=== PATIENT | female | born 1935 | race Caucasian/White ===

== ENCOUNTER 2018-12-25 06:12 | Inpatient (IN) ==
[2018-12-25] MEDS ORDERED: ZOFRAN IV PRN (10:37)
[2018-12-25] MEDS ORDERED: LOVENOX SUBQ SCH (10:45)
[2018-12-25 11:13] LABS: BASO# 0.01 X1000 (0.0-0.2); BASO% 0.1 % (0.0-0.8); EOS# 0.01 X1000 (0.0-0.7); EOS% 0.1 % (0.0-10.0); HEMATOCRIT 39.4 % (37.0-47.0); HEMOGLOBIN 12.9 g/dL (12.0-16.0); IMM GRAN# 0.05 X1000 (0.0-0.04); IMM GRAN% 0.5 % (0.0-0.5); LYMPH# 0.43 X1000 (1.2-3.4); LYMPH% 4.4 % (20.5-51.1); MCH 29.7 PG (27-31); MCHC 32.7 g/dL (33-37); MCV 90.8 FL (81-99); MONO# 0.38 X1000 (0.11-0.59); MONO% 3.9 % (1.7-9.3); MPV 10.3 FL (7.4-10.4); NEUT# 8.91 X1000 (1.4-6.5); PLT 70 X1000 (130-400); RBC 4.34 XMIL (4.2-5.4); WBC 9.79 X1000 (4.8-10.8)
[2018-12-25] MEDS: NS 1,000 ML IV SCH (11:31)
[2018-12-25] MEDS: MAXIPIME 2 GM in NS 100 ML IV SCH ×2 (11:32→23:23)
[2018-12-25 11:33] LABS: ALB/GLOB RATIO 1.3; ALBUMIN 3.4 g/dL (3.5-5.0); CALCIUM 7.8 mg/dL (8.8-10.2); POTASSIUM 3.8 mmol/L (3.5-5.1); TOTAL BILIRUBIN 2.82 mg/dL (0.20-1.00)
[2018-12-25] MEDS: TYLENOL PO PRN ×2 (11:40→20:35)
[2018-12-25 11:42] LABS: BANDS 20 % (0-1); HYPOCHROM 1+; LARGE PLATELETS OCCASIONAL; LYMPHS 8 % (21-51); MONO 4 % (1-9); POIKILOCYTOSIS 1+; SEGS 68 % (42-75)
[2018-12-25 14:17] LABS: BILIRUBIN URINE SMALL (NEGATIVE); BLOOD URINE MODERATE (NEGATIVE); COLOR YELLOW; GLUCOSE URINE NEGATIVE (NEGATIVE); KETONE URINE TRACE mg/dL (NEGATIVE); LEUKOCYTES URINE NEGATIVE (NEGATIVE); NITRITE URINE NEGATIVE (NEGATIVE); PROTEIN URINE 200 mg/dL (NEGATIVE); SP GRAVITY URINE 1.037; TURBIDITY URINE HAZY (CLEAR); URINE SOURCE CATH; UROBILINOGEN URINE 6 mg/dL (NORMAL)
[2018-12-25 14:23] LABS: UR EPITHELIAL CELLS <10 /HPF (<10); URINE BACTERIA NEGATIVE /HPF; URINE RBC TNTC /HPF (<10); URINE WBC <10 /HPF (<10)
[2018-12-25 14:32] LABS: URINE CASTS NONE SEEN; URINE CRYSTALS NONE SEEN; URINE YEAST NONE SEEN
--- NOTE | 2018-12-25 14:43 | HISTORY AND PHYSICAL ---
CHIEF COMPLAINT: Generalized weakness, fever, productive cough. HISTORY OF PRESENT ILLNESS: This is an 83-year-old female with a history of colorectal cancer followed by Dr. Teresa Coello, hypothyroid, and anemia. She presented as a transfer from [facility]. The patient states that she has been in her normal state of health until this morning. She tried to get up to the bedside commode. She put her feet on the floor, attempted to stand, and stated that her feet would not hold her up. Therefore, she just fell down to the floor. She was noted to have a temperature of 103 degrees at this time per EMS vital signs. She did state that after being picked up off the ground and put in the ambulance, she coughed up a large amount of green secretions. She denies any known sick contacts. PAST MEDICAL HISTORY: 1. Anemia. 2. Colorectal cancer, currently on Vectibix. 3. Hypothyroid. 4. Tremor. 5. Osteopenia. PREVIOUS SURGICAL HISTORY: Cholecystectomy, bilateral cataract repair, D and C, and left shoulder manipulation. SOCIAL HISTORY: She lives with her . She denies alcohol, tobacco, or illicit drug use. FAMILY HISTORY: Mother at 81 of liver failure. Father at age 52 from a brain tumor. She does have cardiac disease in her family. ALLERGIES: Cipro which causes shortness of breath, penicillin which causes anaphylaxis, and epinephrine with unknown reaction. HOME MEDICATIONS: A list will be obtained by the nursing staff and once verified, we will review and restart as appropriate. REVIEW OF SYSTEMS: Discussed with the patient with pertinent positives stated in the HPI. She denied any syncope or dizziness, any chest pain or palpitations, shortness of breath, any PND, orthopnea, any hemoptysis, any vomiting, diarrhea, constipation, black or bloody vomitus or stools, any hematuria, dysuria, frequency, urgency. PHYSICAL EXAMINATION: GENERAL: This is an 83-year-old female who is lying in the bed, in no distress. VITAL SIGNS: Blood pressure is 145/50, with a heart rate of 97, respirations are 18, temperature is 101.1 degrees oral, with room air saturations of 98%. EYES: Pupils are equal, round, react to light. EOMs are intact. Sclerae are anicteric. HENT: Head is normocephalic, atraumatic. Mucous membranes are dry. NECK: Supple with trachea midline. No JVD. CARDIOVASCULAR: Regular rate and rhythm. S1 and S2 are appreciated. No murmur. She does have bilateral lower extremity edema. Calves are nontender. Bilateral peripheral pulses palpable x4 extremities. PULMONARY: She does have some rhonchi that clear to cough. Chest rises and falls symmetrically with respiration. Chest wall is nontender to palpation. GASTROINTESTINAL: Abdomen is soft, nontender, nondistended, with bowel sounds in all 4 quadrants. GENITOURINARY: A Lincoln catheter is patent to the bedside bag. SKIN: Warm and dry. She does have a rash to her chest that is clearing. NEUROLOGIC: She is alert and oriented x3. LABS: WBC is 9.7, with hemoglobin 12.9, hematocrit 39.4, and platelets of 70,000. Sodium 135, potassium 3.8, BUN 20, creatinine 1, with a glucose of 84. Total bilirubin is 2.82. Blood cultures are pending. CT of the thorax with contrast is pending. ASSESSMENT AND PLAN: 1. Fever. Blood cultures are pending. We will start antibiotic coverage of cefepime 2 g every 12 hours and further antibiotics will be culture driven. 2. History of colorectal cancer, currently on Vectibix. We will identify and continue her home medications. We will notify Dr. Teresa Coello of the patient's admission. 3. Hypothyroid. We will check a TSH and continue her home medications. 4. Dehydration. We will start some intravenous rehydration. 5. Rash. The patient developed a generalized body rash secondary to chemotherapy. She missed last week's treatments due to this. A rash is noted across her chest. The patient states that it is much better and it has been followed by Dr. Teresa Coello. 6. Further treatments pending hospital course. 7. Plan was discussed with Dr. Cid. Dictated by KI Jaquez for Yomi Cid MD cc: KI Jaquez MD Lloyd James, MD
[2018-12-25] MEDS ORDERED: VANCOMYCIN IV PER PHARMACY MISC SCH (17:00)
[2018-12-25] MEDS ORDERED: VANCOMYCIN 1,550 MG in NS 250 ML IV ONE (18:00)
[2018-12-25] MEDS: CULTURELLE PO SCH (20:35)
[2018-12-25] MEDS: MYSOLINE PO SCH (20:35)
[2018-12-25] MEDS: PRILOSEC PO SCH (20:35)
--- NOTE | 2018-12-25 21:06 | PROGRESS NOTE ---
DATE: 12/25/2018 SUBJECTIVE/OBJECTIVE: The patient is a colorectal cancer patient. She recently completed chemotherapy. I have heard varying dates on that, but within the last couple of weeks, within the last 10 weeks. She is currently on epidermal growth factor receptor antibody treatment Vectibix, which is specific for colorectal cancer. She developed a fever today up to 103. She has been persistently febrile 101, since she has been here, without a clear source. She was initially seen in the [place] ER and then transferred here for admission. Really, her only main complaints were she does have some cough. No abdominal complaints per se. No urinary complaints. ASSESSMENT/PLAN: 1. She has a fever of unknown origin. She is not neutropenic, but there is definitely concern of development of that. We will get Hematology/Oncology to follow, but I am going to put her on cefepime and vancomycin until we have ruled out bacteremia. She is not per se neutropenic, but again, she may be developing that. She also has thrombocytopenia and so we will have to keep a close eye on that. 2. She had mild kidney insufficiency, so we will need to hydrate and re-evaluate. cc: MD Moreno Weldon MD
--- NOTE | 2018-12-25 22:11 | HEMO/ONC CONSULTATION ---
DATE: 12/25/2018 CONSULTATION REQUESTED BY: Hospitalist service. REASON FOR CONSULTATION: Colon cancer, patient known. HISTORY OF PRESENT ILLNESS: Ms. Jeronimo is an 83-year-old female, who is known to us as we are currently treating her for colorectal cancer who is a transfer from [facility]. Over the weekend, per the patient's and daughter who are at bedside along with the patient, she developed some significant weakness. She has had 2 episodes of weakness resulting in her "collapsing" on the floor. She had an elevated temperature late last night, early this morning of 103, and her could not get her off the floor this time so an ambulance came, and she was transferred to the hospital. While in the ambulance, she reports that she coughed up a large amount of green sputum. The patient is currently getting Vectibix for her colon cancer. Her last dose was on 12/07/2018. She did develop a rash from the Vectibix, which is a common side effect. She is actually placed on doxycycline and had taken some doses of the antibiotic prior to being sick. The patient is now in the hospital without any acute complaints. PAST MEDICAL HISTORY: 1. Colon cancer, metastatic, currently on Vectibix with her last dose being on 12/07/2018. 2. Hypothyroidism. 3. Resting tremor. 4. Osteopenia. 5. Anemia. PREVIOUS SURGICAL HISTORY: 1. Cholecystectomy. 2. Bilateral cataract repair. 3. D and C. 4. Left shoulder manipulation. SOCIAL HISTORY: Patient lives with her . She denies any alcohol, tobacco, or illicit drug use. FAMILY HISTORY: Positive for liver failure. Also her father at age of 52 from a brain tumor. She also has cardiac disease in her family. REVIEW OF SYSTEMS: Twelve-point review of systems has been completed and is negative except for as expressed in HPI. PHYSICAL EXAMINATION: Vital Signs: Temperature 101.1 degrees, heart rate 97, respirations 20, blood pressure 145/57, O2 saturation 98% on room air. General: This is a female lying in the hospital bed. Her and daughter are at bedside. She is in no acute distress. She does look acutely ill. Head: Normocephalic, atraumatic. Eyes: Pupils equal, round, reactive. Ears, nose, throat, neck, mouth: Mucosa appears to be normal. Gross auditory acuity is intact. Cardiovascular: S1, S2 heard. Respiratory: She has coarse breath sounds throughout. She has some rhonchi as well. Gastrointestinal: Abdomen is soft. Positive bowel sounds. Musculoskeletal: No bony abnormalities. Skin: She has a noted acneiform rash on her face. No other rashes noted. Neurologic: Patient is alert and oriented. She has no focal motor deficits. LABS AND STUDIES: White blood cells today are 9.79, hemoglobin 12.9, platelets 70,000. Bilirubin is 2.82. Blood cultures are pending. ASSESSMENT AND PLAN: 1. Colon cancer, metastatic. Treatment will continue to be on hold while the patient is in the hospital. She will follow up with us when she is out and will discuss resuming treatment at that time. 2. Fever with likely pneumonia. CT of the chest has been ordered, but the final results are not back yet. She is on broad-spectrum antibiotics to cover pneumonia. Continue to monitor fever curve. Follow up on cultures when they become available. 3. Thrombocytopenia. Patient has ongoing thrombocytopenia and 70 is actually around her baseline. Continue to monitor throughout her hospital stay. No intervention at this time. 4. Rash. Improved from onset. Rash is secondary to her Vectibix. 5. Dehydration. She will continue IV fluids. Thank you for consulting us on Ms. Jeronimo. We will continue to follow along and adjust treatment plan per hospital course. Dictated by MARCIA Looney for Teresa Coello MD cc: MD Moreno Quintero MD I have seen and examined the patient and the note reflects my history, physical exam, assessment and plan. Teresa Coello MD [facility]ALTH SYSTEMSeamus
[2018-12-26] MEDS: NS 1,000 ML IV SCH (03:32)
[2018-12-26] MEDS: TYLENOL PO PRN ×2 (03:32→16:35)
[2018-12-26 07:14] LABS: BASO# 0.01 X1000 (0.0-0.2); BASO% 0.1 % (0.0-0.8); HEMATOCRIT 32.8 % (37.0-47.0); HEMOGLOBIN 10.6 g/dL (12.0-16.0); IMM GRAN# 0.04 X1000 (0.0-0.04); IMM GRAN% 0.4 % (0.0-0.5); LYMPH# 0.75 X1000 (1.2-3.4); LYMPH% 7.9 % (20.5-51.1); MCH 29.4 PG (27-31); MCHC 32.3 g/dL (33-37); MCV 90.9 FL (81-99); MONO# 0.46 X1000 (0.11-0.59); MONO% 4.8 % (1.7-9.3); MPV 11.1 FL (7.4-10.4); NEUT# 8.25 X1000 (1.4-6.5); NEUT% 86.8 % (42.2-75.2); PLT 67 X1000 (130-400); RBC 3.61 XMIL (4.2-5.4); RDW 16.2 % (11.5-14.5); WBC 9.51 X1000 (4.8-10.8)
[2018-12-26 07:42] LABS: ALB/GLOB RATIO 0.9; ALBUMIN 2.3 g/dL (3.5-5.0); CALCIUM 7.4 mg/dL (8.8-10.2); CREATININE 1.2 mg/dL (0.5-0.9); POTASSIUM 4.1 mmol/L (3.5-5.1); TOTAL BILIRUBIN 2.18 mg/dL (0.20-1.00)
[2018-12-26 08:27] LABS: BANDS 12 % (0-1); BURR CELLS 2+; EOS 2 % (1-10); LYMPHS 4 % (21-51); SEGS 82 % (42-75)
--- NOTE | 2018-12-26 08:38 | Diag Imaging Result Doc PS360 ---
EXAM: CT THORAX W/CONTRAST 12/25/2018 HISTORY: pneumonia TECHNIQUE: This exam was performed using automated exposure control, adjustment of mA or kV according to patient size, and/or use of iterative reconstruction technique. COMMENT: The current study is compared with the previous examination of 10/15/2018. There is a filling defect in the inferior vena cava extending into the right atrium. This was also present on 10/15/2018. There is collateral flow through the azygos vein and there were larger collateral veins seen in the retrocrural region on the right which were better demonstrated on the previous study. There is a pleural effusion on the right which was not as large on the previous examination. There is ascites which was present previously. The spleen is somewhat larger in appearance than it was at the time the previous study measuring over 9.5 cm transversely versus 8.8 cm previously. The liver is nodular with areas of lucency present particularly in the posterior lateral right lobe. These may represent necrotic metastases given the patient's history. There are no filling defects in the pulmonary arteries. Subcarinal adenopathy which was present at the time the previous studies appears to have improved with a node slightly under 2 cm in long axis which previously measured over 2.2 cm. There is a pleural-based nodule in the right lower lobe laterally on image 43 which previously was demonstrated on image 42. This has not changed. There is slightly more compressive atelectasis in the right lower lobe. There is a pleural-based nodule on image 75 in the lower lobe which was previously present on image 78 which has not changed appreciably. There is a small nodule adjacent to the major fissure in the left lower lobe which has not changed significantly and is seen today on image 59. There is a nodule in the lingula on image 65 which measures almost 6 mm in diameter. This is larger than it was on the previous examination having measured less than 4 mm in diameter previously. The regional skeleton appears to be stable. IMPRESSION: 1. Atelectasis in the right lower lobe with increased pleural fluid. 2. 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 The extent of thrombosis of the inferior vena cava is not clear as this extends well into the abdomen. 3. Metastasis in the lingula which has increased in size since 10/15/2018. 4. Improvement in mediastinal adenopathy. 5. Slight increase in splenic size. 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 Further evaluation of the abdomen may be desirable. Electronically signed by Catrachito Yi 12/26/2018 8:35 AM
[2018-12-26] MEDS ORDERED: ARIXTRA SUBQ SCH (09:00)
[2018-12-26] MEDS: MYSOLINE PO SCH ×2 (09:40→20:12)
[2018-12-26] MEDS: SYNTHROID PO SCH (09:40)
[2018-12-26] MEDS: KLOR-CON PO SCH (09:40)
[2018-12-26] MEDS: ALLEGRA PO SCH (09:40)
[2018-12-26] MEDS: PRILOSEC PO SCH ×2 (09:41→20:12)
[2018-12-26] MEDS: CULTURELLE PO SCH ×2 (09:41→20:12)
[2018-12-26] MEDS ORDERED: NS 500 ML IV ONE (09:49)
[2018-12-26] MEDS ORDERED: NS 1,000 ML IV SCH (10:00)
[2018-12-26] MEDS ORDERED: ARIXTRA SUBQ ONE ×2 (11:04→11:30)
--- NOTE | 2018-12-26 12:27 | PROGRESS NOTE ---
DATE: 12/26/2018 SUBJECTIVE: She has no major complaints. OBJECTIVE: Blood pressure is 104/52, heart rate of 92, respiratory rate of 14, temperature is 98.2 degrees. Her T-max was 102.9 degrees. Cardiovascular: Regular rate and rhythm. Pulmonary: Bilateral breath sounds clear to auscultation. GI: Soft, nontender, nondistended. Bowel sounds were positive. Extremity Examination: No clubbing or cyanosis. Lymphatic Examination: No peripheral edema. Neurological: Examination was nonfocal. Laboratory Data: Her white count is 9, hemoglobin and hematocrit 10 and 32, platelets of 67,000. Creatinine is up to 1.2. AST is mildly elevated, T-bilirubin is 2. Blood cultures are negative. Her CT scan unfortunately shows multiple issues. Tumor or thrombus in the right atrium with occlusion of the inferior vena cava and collateral venous return. It is thrombotic all the way down into the hepatic area. Lingular metastases of colorectal cancer. There may be cirrhosis as well but she has a large atrial mass. PROBLEM LIST: 1. Large right atrial mass, unclear origin. Apparently, there was some evidence of this in September's scan. We will pursue echocardiogram, cardiology consult, anticoagulation. I am going to use Arixtra because she is thrombocytopenic, until we get more definitive information. Unclear if this is vegetation or thrombus or mass or metastatic disease. Hard to say. 2. Group B strep bacteremia. Blood cultures were positive from [facility] where she was initially evaluated in the emergency room before being transferred. Dr. Cline has been consulted. It looks like we have changed her to Rocephin. I had her on vancomycin and cefepime until we get an etiology but he is following. I appreciate his assistance. 3. Colorectal cancer, unclear, is metastatic. She has completed treatment recently. Dr. Coello has been consulted so we will continue to manage. Not certain if this is a tumor. At this point, unclear, so we will continue treatment and follow. 4. Thrombocytopenia is persistent, apparently per hematology/oncology notes, and stable. We will continue to monitor. 5. Disposition, pending her clinical status. We will continue to follow closely. cc: MD Moreno Weldon MD
--- NOTE | 2018-12-26 13:10 | Diag Imaging Result Doc PS360 ---
EXAM: CT ABDOMEN/PELVIS W/WO CONTRAS 12/26/2018 HISTORY: INF VENA CAVA THROMBUS TECHNIQUE: This exam was performed using automated exposure control, adjustment of mA or kV according to patient size, and/or use of iterative reconstruction technique. COMMENT: The current study is compared with the previous examination of 07/17/2018 and that of 10/15/2018. The aorta is patent and nondilated. The mesenteric and renal arteries are patent. There is some residual contrast in the urinary tract from the previous contrast CT of 12/25/2018. The portal vein is patent. There is thrombosis of the hepatic veins and the intrahepatic portion of the inferior vena cava. Below this portion the vena cava appears to be patent. Both renal veins are patent. There is a large collateral vein seen at the level of the right renal vein between the aorta and the vena cava connecting with the Joan's and there our additional fairly large collateral veins seen on the right side of the lower thoracic spine communicating with the azygos vein. There is some apparent contrast enhancement within the thrombus in the right atrium and also in the upper portion of the inferior vena cava. This most likely indicates the presence of tumor. There are lucencies seen throughout the liver which are similar in appearance to the previous examination. Some of this may be due to necrotic tumor. This is particularly true in the posterior right hepatic lobe. There is ascites as there was at the time the previous study although this may be slightly worse. There is anasarca which was not demonstrated previously. There is no evidence of hydronephrosis. There are cysts present in the lower pole of the right kidney and in the mid lateral cortex on the left which were also present previously. The spleen is slightly larger than it was previously measuring 9.1 cm transversely versus 8.8 cm previously. The pancreas and adrenal glands are stable in appearance. There are several small retroperitoneal nodes present which are similar in appearance to the previous examination. There is a right common iliac node present on image 96 of the portal venous series which measures almost 10 mm in greatest dimension and which has increased in size from just over 6 mm previously. Pelvis: There is a Lincoln catheter in the urinary bladder. There is stool in the rectum. There is presacral edema. This was also present at the time of the previous study. There is an enhancing external iliac node on the right measuring 11 mm in greatest dimension which previously measured slightly over 7 mm. There are multiple prominent inguinal nodes bilaterally which have become larger since the previous study. There is diverticulosis in the sigmoid colon. The regional skeleton appears to be stable. IMPRESSION: 1. Tumor thrombus in the intrahepatic inferior vena cava and right atrium. 2. Worsened ascites, anasarca. 3. Slightly worsened retroperitoneal and inguinal adenopathy. 4. Constipation. Electronically signed by Catrachito Yi 12/26/2018 1:07 PM
[2018-12-26] MEDS: ROCEPHIN 2 GM in NS 50 ML IV SCH (13:18)
[2018-12-26] MEDS ORDERED: VANCOCIN PO SCH (14:00)
[2018-12-26] MEDS ORDERED: LACTULOSE PO PRN (14:23)
--- NOTE | 2018-12-26 16:06 | ECHO REPORT ---
ORDER DATE: 12/26/2018 INTERPRETING PHYSICIAN: Dr. Rell Moore ECHOCARDIOGRAPHIC MEASUREMENTS: 1. Interventricular septum: 0.7 cm. 2. Posterior wall: 0.7 cm. 3. Diastolic diameter: 3.9 cm. 4. Left atrium: 3.4 cm. 5. Aortic root: 3.4 cm. SUMMARY OF THE 2-DIMENSIONAL IMAGIN. Normal left ventricular cavity size. 2. Estimated ejection fraction of 65%. 3. Normal right ventricular cavity size and function. 4. Aortic valve leaflets are trileaflet. 5. Mitral valve was normal. 6. Tricuspid valve was normal. 7. Peak velocity across the aortic valve less than 2 m/sec. There is no aortic stenosis or regurgitation. 8. There is mild tricuspid regurgitation. Peak velocity across the tricuspid valve was 2.5 m/sec. 9. Pulmonary artery systolic pressure of 35 mmHg. There is a large mass noted in the right atrium. In addition, there is compression of the inferior vena cava as well. This is suggestive of a mass. It is not mobile. Would recommend transesophageal echocardiogram if clinically indicated. 10. There is no pericardial effusion. cc: MD Veda Mccartney CRNP Lloyd James, MD
[2018-12-26] MEDS ORDERED: VANCOMYCIN 1 GM/NS 1 GM/250 ML IVPB IV SCH (18:00)
[2018-12-26] MEDS: MIRALAX PO SCH (18:54)
--- NOTE | 2018-12-26 21:39 | INFECTIOUS DISEASE CONSULT REP ---
DATE: 12/26/2018 CONCLUSION: The patient has a group B streptococcal bacteremia, the exact origin of which I am uncertain. On CT scan, the patient is said to have a tumor thrombus in the inferior vena cava and right atrium. The tumor thrombus is said to be looking worse. If the tumor thrombus is getting bigger, now the patient has a bacteremia which most likely will infect this mass and is going to be extremely difficult to clear the bacteremia with such a large tumor mass being infected with it. RECOMMENDATIONS: I have switched the patient to Rocephin 2 g IV every 12 hours. Some of the side effects of the antibiotic, including rash and diarrhea have been explained to the patient who agrees with treatment. DISCUSSION: The patient tells me that she was admitted to the hospital. She was tired and weak, and she passed out during 1 time. Blood cultures taken at [facility] are growing group B Streptococcus. Blood cultures drawn here are negative thus far. CT scan shows a tumor thrombus in the inferior vena cava and right atrium which looks worse than prior CT scans. The patient's CBC shows a white count of 9510, hemoglobin 10.6, and platelet count 67,000. Creatinine is 1.2. GFR is 43. Bilirubin is 2.18, alkaline phosphatase is 117. Urinalysis showed red cells but no white cells or bacteria. PAST SOLAR ELECTRIC/PHOTOVOLTAIC INSTALLER HISTORY: The patient is a 4, para 3, AB 1. REVIEW OF SYSTEMS: Eyes and ears: The patient has decreased hearing and vision. Neck: No stiffness. Respiratory: The patient states she occasionally has episodes of dyspnea. Cardiovascular: No chest pain or palpitations. Gastrointestinal: No nausea, vomiting, or diarrhea. The patient does have rectal cancer. Genitourinary: No dysuria or flank pain. Neurologic: No seizures. No loss of motor or sensory function. PREVIOUS HOSPITALIZATIONS AND OPERATIONS: She has had cataract surgery, a cholecystectomy, a colon resection. MEDICAL DISEASES: Positive for rectal cancer, gastrointestinal reflux disease and hypothyroidism. Negative for diabetes and hypertension. INFECTIOUS DISEASE HISTORY: Positive for pneumonia and UTI. FAMILY HISTORY: Positive for myocardial infarction and stroke. SOCIAL HISTORY[place] . She does not have any pets at home. She does not smoke cigarettes or drink alcoholic beverages or abuse drugs. ALLERGIES: The patient is allergic to ciprofloxacin, penicillin, and epinephrine. The patient's reaction to penicillin is listed as anaphylaxis. Here in the hospital, the patient has been receiving cefepime and now Rocephin and has tolerated them well. HOME MEDICATIONS: Include doxycycline, Juany, Synthroid, omeprazole and primidone. PHYSICAL EXAMINATION: Vital Signs: Temperature is 98.2 degrees, pulse 92, respirations 14, blood pressure 104/52. General: This is an elderly, chronically ill-appearing female. She is in no acute distress. Head, eyes, ears, nose, and throat: She can hear my spoken words and see near objects. There is no drainage coming from her nose or ears. I did not see any white patches in her mouth. Neck: No meningismus. Lungs: Clear to auscultation. Cardiovascular: Heart rate is regular. Abdomen: Soft and nontender. Neurologic: The patient is awake. She can move her extremities. She has a tremor around her mouth. Integument: No rash noted. Thank you for the consult. COMORBIDITIES: He is a Son same-day. cc: MD Moreno Burgess MD
--- NOTE | 2018-12-26 23:59 | HEMO/ONC PROGRESS NOTE ---
DATE: 12/26/2018 SUBJECTIVE: Ms. Jeronimo is lying in her hospital bed and in no acute distress. There is no one at bedside. OBJECTIVE: Vital signs: Temperature 98.2 degrees, heart rate 92, respirations 14, blood pressure 104/52, O2 saturation 97% on room air. CV: S1, S2 heard.Respiratory: Chest with some scant wheezing. Normal respiratory effort. Gastrointestinal: Abdomen is soft. Extremities: She continues have bilateral extremity edema, that seems to be improved from yesterday. LABORATORY DATA: White blood cells 9.51, hemoglobin 10.6, platelet count 67,000. Sodium 136, potassium 4.1, chloride 106, CO2 is 18, BUN 26, creatinine 1.2, glucose 67, total bilirubin is 2.18. DIAGNOSTIC DATA: She did get a CT of the chest, which shows atelectasis in the right lower lobe with increased pleural fluid; tumor thrombus in the right atrium and occlusion of the inferior vena cava, and collateral venous return. The extent of the thrombus of the inferior vena cava is not clear, as this extends well into the abdomen; metastasis in the lingula which has increased since September 2018; slight increase in splenic size. ASSESSMENT AND PLAN: 1. Metastatic colon cancer. Treatment is currently on hold. It appears that she has progression on scans. Discuss further treatment when she is outpatient. 2. Inferior vena cava thrombus. The patient has been started on Arixtra. We will continue for the time being. She is supposed to get a CT of the abdomen and pelvis as well as an echocardiogram. Follow up on those results. 3. Fever. Continue broad-spectrum antibiotics. Continue to follow cultures. Dictated by MARCIA Looney for Teresa Coello MD cc: MD Moreno Quintero MD I have seen and examined this patient and the above note reflects my history, physical examination, assessment and plan. Teresa TAPIA
[2018-12-27] MEDS: ROCEPHIN 2 GM in NS 50 ML IV SCH ×3 (00:11→23:46)
--- NOTE | 2018-12-27 05:48 | CONSULTATION ---
DATE OF CONSULTATION: 12/26/2018 IMPRESSION: 1. 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 Appearance by echocardiography more suggestive of tumor, and CT scan reports enhancement with contrast also suggesting vascularity consistent with tumor. Cannot entirely exclude associated thrombus. 2. Metastatic colon cancer. Patient is status post surgical resection of colon cancer in August of 2017, and has been treated with chemotherapy since then. She has most recently been on Vectibix. 3. Hypothyroidism. 4. Tremor. 5. Recent fever. RECOMMENDATIONS: 1. Cautious anticoagulation certainly reasonable. However, the patient has tendency for thrombocytopenia related to treatment for her malignancy, and anticoagulation may need to be modulated depending on her platelet count. 2. Further management of apparent tumor mass in inferior vena cava to be deferred to Oncology. HISTORY: This 83-year-old white female with past history of metastatic colon cancer was admitted on transfer from [facility] where she presented with acute febrile illness, and weakness. She sustained a fall. Blood cultures at [place] reportedly demonstrated group B strep bacteremia. She has had chest and abdominal imaging studies reporting a mass in the upper inferior vena cava and right atrium. Echocardiography is requested, and cardiology consultation also requested. The patient has no history of cardiac problems. She has had some tendency for bilateral lower extremity edema over the past 6 months or so. She is status post resection of colon cancer in August of 2017, and has been treated with chemotherapy since that time for metastatic colon cancer. She recently started feeling weak and tried to get up to use the bedside commode. She attempted to stand after she got up from bed but was so weak she could not hold herself up. She slipped to the floor without loss of consciousness. She was seen in the emergency room in [place], and had fever of 103 degrees per EMS vital signs. She did cough up some green secretions. Her relates that she has had some chills as well. PAST MEDICAL HISTORY: 1. Colorectal cancer. Patient is status post treatment with chemotherapy and most recently has been on Vectibix with last dose being 12/07/2018. 2. Hypothyroidism. 3. Resting tremor. 4. Osteopenia. 5. Anemia. PAST SURGICAL HISTORY: 1. Includes cholecystectomy, bilateral cataract repair, D and C, and left shoulder manipulation. 2. She is allergic or intolerant to ciprofloxacin, penicillins and epinephrine. MEDICATIONS PRIOR TO ADMISSION: As listed. SOCIAL HISTORY: She lives with her in a region [place] of [place]. She does not smoke or use alcohol. Her has coronary disease and may be needing coronary bypass surgery in the near future. FAMILY HISTORY: Negative for premature coronary disease. REVIEW OF SYSTEMS: Pulmonary: Noncontributory beyond history of present illness. Gastrointestinal: Noncontributory beyond history of present illness. Constitutional: Noncontributory beyond history of present illness. Remainder of review of systems negative/noncontributory beyond history of present illness with 14 total systems reviewed. PHYSICAL EXAMINATION: General: This is a thin elderly white female in no distress. Vital Signs: Blood pressure 142/65, heart rate 93, and oxygen saturation 99% on room air. HEENT: Extraocular movements intact. Mucous membranes are moist. Neck: Supple without jugular venous distention. There are no carotid bruits. Chest: Clear to auscultation bilaterally. Cardiac: Reveals a regular rate and rhythm without appreciable murmur or gallop. Abdomen: Soft. Bowel sounds are normal. Extremities: Demonstrate mild pretibial edema bilaterally. PERTINENT DATA: Twelve lead EKG is pending. Telemetry demonstrates sinus rhythm. Echocardiogram is reviewed and demonstrates a mass noted in the right atrium and upper inferior vena cava that seems to have extension from hepatic vein. Mass is fairly echo bright and appears immobile. Appearance more suggestive of tumor than clot. LABORATORY DATA: Includes a white blood cell count 9.51, hematocrit 32.8, hemoglobin 10.6, and platelet count 67,000. Sodium 136, potassium 4.1, chloride 106, carbon dioxide 18, BUN 26, and creatinine 1.2. Glucose 67. Bilirubin 2.18. AST 36, ALT 14, alkaline phosphatase 117 and albumin 2.3. cc: MD Moreno Doherty MD
[2018-12-27 07:40] LABS: BASO# 0.02 X1000 (0.0-0.2); BASO% 0.2 % (0.0-0.8); EOS# 0.02 X1000 (0.0-0.7); EOS% 0.2 % (0.0-10.0); HEMATOCRIT 34.2 % (37.0-47.0); HEMOGLOBIN 11.2 g/dL (12.0-16.0); IMM GRAN# 0.03 X1000 (0.0-0.04); IMM GRAN% 0.4 % (0.0-0.5); LYMPH# 1.06 X1000 (1.2-3.4); MCH 29.3 PG (27-31); MCHC 32.7 g/dL (33-37); MCV 89.5 FL (81-99); MONO# 0.34 X1000 (0.11-0.59); MONO% 4.2 % (1.7-9.3); MPV 10.9 FL (7.4-10.4); NEUT# 6.67 X1000 (1.4-6.5); PLT 65 X1000 (130-400); RBC 3.82 XMIL (4.2-5.4); RDW 16.3 % (11.5-14.5); WBC 8.14 X1000 (4.8-10.8)
[2018-12-27 07:51] LABS: AGAP 13; BUN 23 mg/dL (8-22); CALCIUM 8.1 mg/dL (8.8-10.2); CHLORIDE 107 mmol/L (98-107); COSMO 275; CREATININE 0.8 mg/dL (0.5-0.9); ESTIMATED GFR > 60; GLUCOSE 61 mg/dL (70-104); POTASSIUM 3.9 mmol/L (3.5-5.1); SODIUM 137 mmol/L (136-145); TCO2 17 mmol/L (25-35)
[2018-12-27] MEDS ORDERED: ARIXTRA SUBQ SCH ×2 (09:00)
[2018-12-27] MEDS: MYSOLINE PO SCH ×2 (11:41→21:09)
[2018-12-27] MEDS: KLOR-CON PO SCH (11:41)
[2018-12-27] MEDS: PRILOSEC PO SCH ×2 (11:41→21:09)
[2018-12-27] MEDS: SYNTHROID PO SCH (11:41)
[2018-12-27] MEDS: CULTURELLE PO SCH ×2 (11:41→21:09)
[2018-12-27] MEDS: ARIXTRA SUBQ SCH (11:42)
[2018-12-27] MEDS: MIRALAX PO SCH (11:43)
[2018-12-27] MEDS: ALLEGRA PO SCH (11:43)
--- NOTE | 2018-12-27 17:31 | PROGRESS NOTE ---
DATE: 12/27/2018 SUBJECTIVE: The patient reports feeling fine. No chest pain. No shortness of breath while she is resting. OBJECTIVE: Vital Signs: Temperature 98.1 degrees, heart rate 84, respiratory rate 16, blood pressure 129/63, O2 saturation 98% on room air. General Examination: This is a chronically ill- appearing, 83-year-old female lying in bed, in no acute distress. Cardiovascular: S1, S2 heard. No murmurs, gallops, or rubs. Regular rate and rhythm. Respiratory: Clear bilaterally to auscultation. No work of breathing. Not using accessory muscles. Abdomen: Soft. Nontender to palpation. Bowel sounds present. No organomegaly. Extremities: No clubbing, cyanosis, or edema. Peripheral pulses present in both legs. Neurological: Patient is alert and oriented x3. Moves 4 extremities. LABORATORY DATA: Reviewed. ASSESSMENT AND PLAN: 1. Large right atrial mass. The patient has been placed on Arixtra for this condition and because of thrombocytopenia. Platelet count so far is stable, 67,000 yesterday and 65,000 today. We will continue with the same management. Hematology is also following this patient. 2. Group B streptococcal bacteremia. Patient is on Rocephin 2 g IV q.[address] Cline's recommendation. We will continue with same management. 3. Colorectal cancer. Dr. Coello has been consulted. We will follow recommendations. 4. 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 Aware. Oncology is following this patient. 5. Thrombocytopenia. At this point, I think that is stable. We will continue to monitor. 6. Disposition. Pending clinical status. Will continue to monitor this patient closely. cc: MD Moreno Mcmillan MD
--- NOTE | 2018-12-27 22:10 | INFECTIOUS DISEASE PROGRESS NO ---
DATE: 12/27/2018 PRESENT ILLNESS: The patient has a group B streptococcal bacteremia. I think that it originated from the patient's right-sided Port-A-Cath. MEDICATIONS: The patient is receiving Rocephin 2 g IV every 12 hours. OBJECTIVE: Vital signs: Temperature is 98.1 degrees, pulse 84, respirations 16, blood pressure 132/67. Generally, this is an ill-appearing elderly female. She is in no acute distress. Head, eyes, ears, nose, throat: She can hear my spoken words and see near objects. She does not have any white patches on her tongue. Neck: No meningismus. Thorax: The patient has a Port-A-Cath on the right side. The site is not swollen or red. Lungs clear to auscultation.Cardiovascular: Regular heart rate. Abdomen soft and nontender. Neurologic: The patient is awake. She can move her extremities. There is no tremor. She talks in a coherent fashion. Integument: No rash. LABORATORY DATA: CBC today shows a white count of 8140, hemoglobin 11.2, platelet count 65,000. Creatinine 0.8, GFR is greater than 60. Repeat blood cultures from 2 days ago are negative. Repeat blood cultures from a day ago are still pending. ASSESSMENT AND PLAN: 1. The patient has group B streptococcus bacteremia which I think originates from her Port-A- Cath. Unfortunately, she has a tumor mass which is invading into the inferior vena cava and right atrium. I discussed with the patient about her bacteremia and told her that we could handle it 2 different ways. One would be to remove her Port-A-Cath now and then if all blood cultures are negative put another one in, or if all the blood cultures are negative, we could go ahead and infuse through the Port-A-Cath for 14 days and then stop the antibiotics. If the bacteremia does not come back again, then we can keep the Port-A-Cath. I think the patient favors trying to treat for 2 weeks with the intravenous antibiotic and seeing if we can save the Port-A-Cath. I have been giving the patient Rocephin 2 g intravenously every 12 hours. After the 2-week period, I think the patient should be put on long-term oral antibiotic because the tumor mass in her inferior vena cava and atrium most likely are infected, and I think it will be difficult to sterilize the tumor mass if it indeed is infected; therefore, I would give her the p.o. antibiotic with the idea of keeping any infection present suppressed. 2. Comorbidities: Unfortunately, the patient has rectal cancer which has invaded her inferior vena cava and right atrium. cc: MD Moreno Burgess MD
--- NOTE | 2018-12-27 22:24 | Extremity Venous Study ---
PROCEDURE NAME: Venous U/S Bilateral Legs - 12/26/2018 REQUESTING PROVIDER: KI Jaquez CASINO RUNNER: Richardson. INDICATIONS: Inferior vena cava thrombus. EQUIPMENT: [employer] Vivid E9 Ultrasound System with 9L-D transducer. FINDINGS: Images of the bilateral lower extremity venous systems were obtained in both sagittal and transverse planes. Doppler was used to evaluate veins for spontaneity, phasicity, respiratory excursion, and digital augmentation. RESULTS: Thick callahan noted, possibly the thrombus along the callahan of the right common femoral and takeoff of the right greater saphenous vein. There appears to be no other obvious pathology noted in the bilateral venous systems. INTERPRETATION: Thick callahan with thrombus along the callahan of the right common femoral vein and takeoff of the right greater saphenous vein. I would recommend handling this clinically in the context of an inferior vena cava thrombus. cc: MD Veda Mcbride CRNP Lloyd James, MD
[2018-12-28 07:27] LABS: BASO# 0.01 X1000 (0.0-0.2); BASO% 0.2 % (0.0-0.8); EOS# 0.06 X1000 (0.0-0.7); HEMATOCRIT 33.6 % (37.0-47.0); HEMOGLOBIN 10.9 g/dL (12.0-16.0); IMM GRAN# 0.03 X1000 (0.0-0.04); IMM GRAN% 0.5 % (0.0-0.5); LYMPH# 1.37 X1000 (1.2-3.4); LYMPH% 23.3 % (20.5-51.1); MCH 28.5 PG (27-31); MCHC 32.4 g/dL (33-37); MCV 87.7 FL (81-99); MONO# 0.46 X1000 (0.11-0.59); MONO% 7.8 % (1.7-9.3); MPV 11.7 FL (7.4-10.4); NEUT# 3.95 X1000 (1.4-6.5); NEUT% 67.2 % (42.2-75.2); PLT 71 X1000 (130-400); RBC 3.83 XMIL (4.2-5.4); WBC 5.88 X1000 (4.8-10.8)
[2018-12-28 07:43] LABS: AGAP 12; BUN 18 mg/dL (8-22); CALCIUM 7.8 mg/dL (8.8-10.2); CHLORIDE 104 mmol/L (98-107); COSMO 269; CREATININE 0.7 mg/dL (0.5-0.9); ESTIMATED GFR > 60; GLUCOSE 84 mg/dL (70-104); POTASSIUM 3.9 mmol/L (3.5-5.1); SODIUM 134 mmol/L (136-145); TCO2 18 mmol/L (25-35)
[2018-12-28] MEDS: MYSOLINE PO SCH ×2 (08:15→22:13)
[2018-12-28] MEDS: MIRALAX PO SCH (08:15)
[2018-12-28] MEDS: CULTURELLE PO SCH ×2 (08:15→22:14)
[2018-12-28] MEDS: ARIXTRA SUBQ SCH (08:15)
[2018-12-28] MEDS: SYNTHROID PO SCH (08:16)
[2018-12-28] MEDS: KLOR-CON PO SCH (08:16)
[2018-12-28] MEDS: PRILOSEC PO SCH ×2 (08:16→22:14)
[2018-12-28] MEDS: ALLEGRA PO SCH (09:01)
--- NOTE | 2018-12-28 09:38 | PROGRESS NOTE ---
DATE: 12/28/2018 SUBJECTIVE: Ms. Jeronimo was admitted on 12/25/2018. Her doctor is Jennifer Zambrano. She came in with general weakness, fever, and productive cough. This is an 83-year-old with history of colorectal cancer followed by Dr. Teresa Coello. She has history of hypothyroidism and anemia. She presented as a transfer from [facility]. States that she has been in her normal state of health until the morning of admission when she got up to go to the bedside commode, and put her feet on the floor. She attempted to stand, and stated that her feet would not hold her up and that she just fell down onto the floor. She was noted to have a temperature of 103 degrees per EMS. She was picked up off the ground by the paramedics, and coughed up a large amount of greenish secretions. PAST MEDICAL HISTORY: 1. Anemia. 2. Colorectal cancer, currently on Vectibix. 3. Hypothyroidism. 4. Tremor. 5. Osteopenia. PAST SURGICAL HISTORY: Cholecystectomy, bilateral cataract repair, D and C, and left shoulder manipulation in the past. OBJECTIVE: Today, she states she is feeling better. She is eating breakfast. Her is at the bedside. Remains afebrile, temperature 98.2 degrees, pulse 80, respirations 17, and blood pressure 127/70. Pupils are equal and round. Lungs are clear in all lung gilman. Cardiovascular regular rhythm and rate without murmur or S3. Abdomen is soft. Skin is warm and dry. Urine output was 1300 mL. ASSESSMENT AND PLAN: 1. Group B streptococcal bacteremia. I think it originated from the patient's right-sided Port-A- Cath. She is getting Rocephin 2 g IV q.12 hours. 2. Large right atrial mass. The patient has been placed on Arixtra for this condition because of her thrombocytopenia, platelet count so far has been stable at 60,000. 3. Colorectal cancer. Dr. Coello is going to discuss with the patient the plan. 4. 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 Oncology/hematology following. 5. Nutrition. Apparently, she is eating pretty good. Appetite is good. REVIEW OF MEDICATIONS: 1. She is on Juany 60 mg a day. 2. Arixtra which is fondaparinux 7.5 mg daily. 3. Lactobacillus rhamnosus 1 b.i.d. 4. Lactulose 30 mL a day. 5. Synthroid 88 mcg every morning. 6. Prilosec 20 mg b.i.d. 7. Polyethylene glycol 17 g a day. 8. Mysoline 50 mg p.o. b.i.d. 9. Ceftriaxone 2 g IV q.12. LABORATORY: Labs from this morning, white count 5880, hematocrit is 33, platelet count is 71,000. Sodium 134, potassium 3.9, chloride 104, BUN is 18, and creatinine 0.7. cc: MD Moreno Carrillo MD
[2018-12-28] MEDS: ROCEPHIN 2 GM in NS 50 ML IV SCH ×2 (13:11→22:14)
--- NOTE | 2018-12-28 18:39 | INFECTIOUS DISEASE PROGRESS NO ---
DATE: 12/28/2018 PRESENT ILLNESS: The patient has a group B streptococcal bacteremia which I think originated from the patient's right-sided Port-A-Cath. MEDICATIONS: The patient is receiving Rocephin 2 g IV every 12 hours. PHYSICAL EXAMINATION: Vital Signs: Temperature is 97.7 degrees, pulse 77, respirations 20, blood pressure 129/67. General: This is an ill-appearing elderly female. She is in no acute distress. She can hear my spoken words and see near objects. She does not have any white coating on her tongue. Neck: No meningismus. Thorax: The patient has a right-sided Port-A-Cath. The site is not erythematous or swollen. Lungs: Clear to auscultation. Cardiovascular: Regular heart rate. Abdomen: Soft and nontender. Neurologic: The patient is arousable. She can move her extremities. There is no tremor. LAB AND X-RAY: CBC shows a white count of 5880, hemoglobin 10.9, platelet count 71,000. Creatinine is 0.7. GFR is greater than 60. Patient's repeat blood cultures are sterile. ASSESSMENT AND PLAN: Treat the patient with antibiotics infused through the Port-A-Cath for 14 days and then stop and most likely put the patient on an antibiotic by mouth because the tumor mass that is in the inferior vena cava and her right atrium may have become infected while the patient was bacteremic. The oral antibiotics would be to keep any infection suppressed on the tumor mass. COMORBIDITIES: Unfortunately the patient has metastatic rectal cancer which as mentioned above has invaded her inferior vena cava and right atrium. cc: MD Moreno Burgess MD MTDD
--- NOTE | 2018-12-28 19:45 | HEMO/ONC CONSULTATION ---
DATE: 12/28/2018 SUBJECTIVE: Ms. Jeronimo is sitting in the hospital bed. She is feeling better. VITAL SIGNS: Temperature 97.7 degrees, heart rate 77, respirations 20, blood pressure 129/67, O2 saturation 99% on room air. LABS AND STUDIES: White blood cells are 5.88, hemoglobin 10.9, platelet count is 71,000. Sodium 134, potassium 3.9, chloride 104, CO2 18, BUN 18, creatinine 0.7, glucose is 84. PHYSICAL EXAM: CV: S1, S2 heard. No murmurs, gallops, rubs appreciated. Respiratory: Chest is clear. Gastrointestinal: Abdomen is soft. Positive bowel sounds. Extremities: She continues to have bilateral extremity edema, though it is improved. ASSESSMENT AND PLAN: 1. Metastatic colorectal cancer. She was previously receiving Vectibix. However, her scans indicate that she has had progression of disease. We will have the patient follow up with us once she is released from the hospital to discuss our direction going forward. 2. 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 She also likely has venous thrombus in combination. We will continue with Arixtra. I would recommend that she continue with Arixtra even at discharge. She is high risk for bleeding. She has several family members who are in the health profession who should be able to assist her with injections at home. We would plan about a 6 week course of Arixtra, and then maybe consider transitioning her to an oral agent. We can continue anticoagulation as long as her platelets stay above 50,000 and she has no significant bleeding. 3. Fevers, leukocytosis, and bacteremia. Continue intravenous antibiotics. Seems to be improving. No plans currently for removing the port. Repeat blood cultures have all been negative after 48 hours. 4. Disposition. We have ordered physical therapy so the patient can get up and start to move around prior to maybe being discharged in the next couple days. Again, we will follow up with her as an outpatient. We will be available as needed by phone over the weekend, but will resume regular followup on Monday. Dictated by MARCIA Looney for Teresa Coello MD cc: MD Moreno Quintero MD I have seen and examined this patient and the above note reflects my history, physical examination, assessment and plan. Teresa TAPIA
[2018-12-29] MEDS: ROCEPHIN 2 GM in NS 50 ML IV SCH ×3 (00:02→23:31)
[2018-12-29 08:04] LABS: AGAP 12; BUN 12 mg/dL (8-22); CALCIUM 8.1 mg/dL (8.8-10.2); CHLORIDE 106 mmol/L (98-107); COSMO 275; CREATININE 0.7 mg/dL (0.5-0.9); ESTIMATED GFR > 60; GLUCOSE 90 mg/dL (70-104); POTASSIUM 4.2 mmol/L (3.5-5.1); SODIUM 138 mmol/L (136-145); TCO2 20 mmol/L (25-35)
--- NOTE | 2018-12-29 10:29 | PROGRESS NOTE ---
DATE: 12/29/2018 Ms. Jeronimo she feels a little better. She does not like the breakfast much. She wants to get the Lincoln catheter out. She knows she is weak. They did have a talk with Dr. Coello, so we do need to work on her strength, but she would like to go home. OBJECTIVE: Temperature 97.7 degrees, pulse 93, respirations 20, blood pressure 122/69.HEENT: Pupils are equal and round. Lungs: Clear in all lung gilman. Cardiovascular: Regular rhythm and rate without murmur or S3. Abdomen: Soft. Skin: Warm and dry. Urine output is 4300 mL. ASSESSMENT AND PLAN: 1. Metastatic colorectal cancer, previously receiving Vectibix; however, her scans indicate she has progression of disease so Dr. Coello will follow up. She gets a little stronger, see if there is anything we can offer. 2. 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 We will continue Arixtra and recommend she continue Arixtra even at discharge. She has a high risk for bleeding. Several family members who are in the health profession should be able to assist her with injections at home. Plan on a 6 week course of Arixtra and maybe consider transitioning to an oral agent. We will continue anticoagulation as long as platelets stay above 50,000 and has no significant bleeding. 3. Fever, leukocytosis, bacteremia so seems to be improving. 4. Disposition. Continue physical therapy. Hopefully, she can go home and she would benefit from probably home help with physical therapy. REVIEW OF HER ORDERS: She is on Juany 60 mg daily, Arixtra which is fondaparinux 7.5 mg subcutaneous daily, lactobacillus rhamnosus 1 b.i.d., lactulose 30 mL daily, Synthroid 88 mcg daily, Prilosec 20 mg b.i.d., glycol 17 g p.o. daily, potassium chloride 20 mEq daily, Mysoline 50 mg p.o. b.i.d., ceftriaxone 2 g IV q.12. She has group B streptococcal bacteremia that I believe originated from the patient's Port-A-Cath, receiving Rocephin 2 g IV q.12. cc: MD Moreno Carrillo MD
[2018-12-29] MEDS: ALLEGRA PO SCH (10:34)
[2018-12-29] MEDS: PRILOSEC PO SCH ×2 (10:34→20:46)
[2018-12-29] MEDS: SYNTHROID PO SCH (10:34)
[2018-12-29] MEDS: KLOR-CON PO SCH (10:34)
[2018-12-29] MEDS: MIRALAX PO SCH (10:34)
[2018-12-29] MEDS: ARIXTRA SUBQ SCH (10:35)
[2018-12-29] MEDS: MYSOLINE PO SCH ×2 (10:35→20:46)
[2018-12-29] MEDS: CULTURELLE PO SCH ×2 (10:35→20:46)
[2018-12-30] MEDS: ARIXTRA SUBQ SCH (11:19)
[2018-12-30] MEDS: PRILOSEC PO SCH ×2 (11:19→22:54)
[2018-12-30] MEDS: ALLEGRA PO SCH (11:19)
[2018-12-30] MEDS: MYSOLINE PO SCH ×2 (11:20→22:54)
[2018-12-30] MEDS: SYNTHROID PO SCH (11:20)
[2018-12-30] MEDS: KLOR-CON PO SCH (11:20)
[2018-12-30] MEDS: CULTURELLE PO SCH ×2 (11:20→22:54)
[2018-12-30] MEDS: ROCEPHIN 2 GM in NS 50 ML IV SCH ×2 (11:39→22:56)
--- NOTE | 2018-12-30 13:16 | PROGRESS NOTE ---
DATE: 12/30/2018 Ms. Jeronimo was sleeping, resting comfortably, breathing comfortably. OBJECTIVE: She remains afebrile, temperature 97.9 degrees, pulse 85, respirations 18, blood pressure 143/67. Pupils are equal and round.Lungs: Clear in all lung gilman. Cardiovascular: Regular rhythm and rate without murmur or S3. Abdomen: Soft. Skin: Warm and dry. ASSESSMENT AND PLAN: 1. Metastatic colorectal cancer. She was receiving Vectibix. Scans indicate progression of disease. Dr. Martinez is her oncologist. She plans to follow up as an outpatient. Nothing to offer at this point. 2. 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 Recommended to continue Arixtra even at discharge, high risk for bleeding. Several family members are in health profession system so hopefully will have some help with her injections. 3. Fever, leukocytosis, bacteremia, improving. 4. Disposition: Continue physical therapy. Hopefully home soon. Looking over orders, I do not see any change. Electrolytes and CBC from yesterday unremarkable. cc: MD Moreno Carrillo MD
[2018-12-31] MEDS: SYNTHROID PO SCH (11:50)
[2018-12-31] MEDS: CULTURELLE PO SCH (11:50)
[2018-12-31] MEDS: PRILOSEC PO SCH (11:50)
[2018-12-31] MEDS: ROCEPHIN 2 GM in NS 50 ML IV SCH (11:50)
[2018-12-31] MEDS: ALLEGRA PO SCH (11:50)
[2018-12-31] MEDS: KLOR-CON PO SCH (11:50)
[2018-12-31] MEDS: MIRALAX PO SCH (11:50)
[2018-12-31] MEDS: MYSOLINE PO SCH (11:50)
[2018-12-31] MEDS ORDERED: BLISTEX MEDICATED BERRY LIP BALM TOP PRN (12:06)
[2018-12-31] MEDS: ARIXTRA SUBQ SCH (12:28)
[2018-12-31 16:49] VITALS: BP 149/80
--- NOTE | 2018-12-31 17:20 | DISCHARGE SUMMARY ---
ADMISSION DATE: 12/25/2018 DISCHARGE DATE: 12/31/2018 PRIMARY CARE PROVIDER: Jennifer Zambrano. HISTORY: This is an 83-year-old with a history of colorectal cancer, followed by Dr. Teresa Coello, history of hypothyroidism, and anemia, presented as transfer from [facility]. States she had been in her normal state of health until that morning of admission. She tried to get up to the bedside commode. She put her feet on the floor, attempted to stand, and stated that her feet would not hold her up. Therefore, she just fell down to the floor. She was noted to have a temperature of 103 degrees. EMS came and brought her, I believe, to [place], picked her up off the ground. She coughed up a large amount of greenish secretions. She had not recognized any recent sick contacts. PAST MEDICAL HISTORY: 1. Anemia. 2. Colorectal cancer. 3. Hypothyroidism. 4. Tremor. 5. Osteopenia. ADMISSION DIAGNOSES: 1. Fever. Blood cultures were obtained. She was put on cefepime 2 g q.12 hours. 2. Colorectal cancer, metastatic. She has been on Vectibix and they continued her home medications. Dr. Teresa Coello came and evaluated as well. Treatment was on hold. 3. Hypothyroidism. Appeared to be euthyroid. Continued to monitor her TSH. Continued her medication. 4. Dehydration. Gave her some IV fluids. 5. Rash. Developed a generalized body rash secondary to chemotherapy and the rash seemed to resolve. It was most concentrated across her chest. Dr. Coello evaluated as well. CT of the chest has been ordered. Kept on broad-spectrum antibiotic. She did have some thrombocytopenia, platelet count in the 70,000 which is around her baseline. The rash has improved. Abdominal and pelvic CT: Tumor thrombosis in the intrahepatic inferior vena cava and right atrium, worsened ascites and anasarca, slightly worse retroperitoneal and inguinal adenopathy. Constipation noted. Cardiology was consulted. [place] that most of her symptoms were from obstructive inferior vena cava by mass extending from the inferior vena cava into the right atrium, also appearing to extend from the hepatic vein. Echocardiography suggested tumor. CT scan suggested enhancement. Contrast also suggesting vascularity consistent with tumor. Infectious Disease was asked to see. She had group B streptococcal bacteremia. I think this originated probably from the right-sided Port-A-Cath and started on Rocephin 2 g IV q.12. She showed some improvement. Hematology felt she could go home and follow up her up as an outpatient. She has tumor thrombosis of the inferior vena cava. Likely has venous thrombosis in combination and so put her on Arixtra and she will get an additional 6 weeks of Arixtra and then plan to continue an anticoagulant as long as her platelets stay above 50,000. Dr. Cline wanted to give her some p.o. antibiotics. She underwent physical therapy and seemed to tolerate this well. So plan is to let her go home. DISCHARGE MEDICATIONS: She will be on Juany 60 mg a day, Arixtra 7.5 mg subcutaneous daily for another 6 weeks, Culturelle 1 twice a day, lactulose 30 mL daily p.r.n., Synthroid 88 mcg q.a.m., Prilosec 20 mg b.i.d., MiraLAX 17 g p.o. daily, Klor-Con 20 mEq daily, and Mysoline [address] I believe [address] Lugo he got her home medicines. He is going to have her on Keflex 500 mg p.o. q.8 hours for a total of 20 tablets and doxycycline 100 mg b.i.d. which she will continue to take until follow-up in the clinic. cc: Callum Parker MD
[2018-12-31] MEDS ORDERED: FLU VACCINE IM ONE (17:25)
--- NOTE | 2018-12-31 22:00 | INFECTIOUS DISEASE PROGRESS NO ---
DATE: 12/31/2018 The patient has a streptococcal bacteremia. She has had approximately 1 week of IV Rocephin. I discussed with the patient and her of further antibiotics. We have agreed to have the patient take Keflex 500 mg p.o. every 8 hours for another week to complete a 2-week treatment. I have made a prescription through the computer for the Keflex. The patient is allergic to penicillins; however, she has tolerated Rocephin very well, and therefore she should tolerate Keflex very well because both antibiotics are cephalosporin antibiotics. I am signing off of the patient's case. I am available to see her on a p.r.n. basis. cc: Maxi Cline MD
--- NOTE | 2018-12-31 22:57 | HEMO/ONC PROGRESS NOTE ---
DATE: 12/31/2018 SUBJECTIVE: Ms. Jeronimo is sitting up in the hospital chair. She is in no acute distress today. She is hopeful to go home later today. OBJECTIVE: Vital Signs: Temperature 97.7 degrees, heart rate 82, respirations 16, blood pressure 135/76, O2 saturation 97% on room air. Labs: No new labs for today. Cardiovascular: S1, S2 heard. No murmurs, gallops, rubs appreciated. Respiratory: Chest is clear. Gastrointestinal: Abdomen is soft. Extremities: She now has 2+ bilateral pitting edema. ASSESSMENT AND PLAN: 1. Metastatic colorectal cancer. Previously on Vectibix. Most recent scan showed progression. Plan is for the patient to follow up with us when she is out so we can discuss our direction going forward. 2. 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 She will continue Arixtra. She will need to continue this once she is home. We are planning a 6-week course. 3. Fevers, leukocytosis and bacteremia. These seem to have essentially resolved. IV antibiotic/oral antibiotic management per Dr. Cline and his team. 4. Deconditioning. Patient has now been up and out of the bed several times since Monday. Continue efforts with PT. 5. Disposition. We support the patient going home as soon as the primary team and other consultants are in agreement. The patient can follow up with us as an outpatient. Dictated by MARCIA Looney for Teresa Coello MD cc: Teresa Coello MD I have seen and examined the patient and the above note reflects my history, physical, assessment and plan. Teresa TAPIA
== END 2018-12-31 18:39 | disposition home or self-care (01) | DRG 314 ==
LOC: SUATTDRO 06:12 → 4N 06:12
PROVIDERS: ATTEND Emergency Medicine